=== PATIENT | female | born 1985 | race Caucasian/White ===

== ENCOUNTER 2023-07-28 03:30 | Emergency (ER) | payer MEDICAID, SELFPAY ==
[2023-07-28 03:32] VITALS: BP 140/100; PULSE 97; RESP 16; TEMP 36.6; O2SAT 99; BMI 21.7
[2023-07-28 04:00] VITALS: BP 125/88; PULSE 108; O2SAT 98
[2023-07-28 04:12] LABS: Microscopic, Urine URINE MICROSCOPIC (MICROSCOPIC)
[2023-07-28 04:22] LABS: Appearance,Urine CLEAR (Clear); Blood, Urine 2+ (Negative); Color,Urine ORANGE (Yellow); Glucose,Urine (UA) TRACE (Negative); Ketones,Urine Negative (Negative); Leukocyte Esterase,Urine 2+ (Negative); Nitrate,Urine POSITIVE (Negative); Protein,Urine 2+ (Negative); Urobilinogen,Urine >=8.0 EU/dl (0.2)
[2023-07-28 04:23] LABS: Bilirubin,Urine Negative (Negative)
[2023-07-28 04:30] VITALS: BP 112/87; PULSE 83; O2SAT 98
[2023-07-28 04:41] LABS: Bacteria,Urine 4+ /lpf
--- NOTE | 2023-07-28 04:51 | ED_ITS ---
Discharge Plan Disposition Patient Disposition: Home, Self-Care Condition: Good Prescriptions Prescriptions: New cefdinir 300 mg capsule 300 mg PO BID 7 Days Qty: 14 0RF Referrals Follow up/Referrals: Mecca Grover [Primary Care Provider] - See instructions Activity Restrictions/Add. Instructions Additional Instructions/Restrictions: You were evaluated in the ER. You are appropriate for discharge at this time. Take the newly prescribed antibiotics as directed, do not skip doses, do not stop taking them early. Increase your water intake and drink plenty of fluids. Continue taking Tylenol or ibuprofen if needed for pain, do not exceed the recommended doses on the bottles. Make an appointment with your primary care physician for reevaluation in 2 to 3 days. Return to the ER with any new, worsening, or otherwise concerning symptoms. Clinical Impressions Clinical Impression: Urinary tract infection Instructions Patient Instructions: DI for Urinary Tract Infection (UTI), DI for Urinary Tract Infection in Children Discharge ED Provider: Alannah Lance General Adult HPI General Chief complaint: Urogenital-Female Stated complaint: UTI, blood in urine, low fever Time Seen by Provider: 07/28/23 03:54 Mode of Arrival: Ambulatory Source of Information: Patient Limitations: No Limitations Description of Symptoms (Recalled from ER Triage Doc. by RN): pt c/o painful burning, decreased urination since yesterday morning. pt states has a history of UTI and took IBU, and AZO midol 2 hrs prior to arrival History of Present Illness HPI narrative: 38-year-old female presents to the ER concerned she has urinary tract infection. She states she is having pain with urination, states she is urinating very little since yesterday morning. Patient states she has history of E. coli urinary tract infection. She has taken nitrofurantoin for previously. She st ates she is having low back pain associated with her other symptoms. She states she has pain over her bladder. She has felt febrile but no measured temperature at home. She has taken Midol, ibuprofen, Azo prior to arrival. Related Data Previous Rx's Medication Instructions Recorded cefdinir 300 mg capsule 300 mg PO BID 7 days #14 caps 07/28/23 Allergies Allergy/AdvReac Type Severity Reaction Status Date / Time naloxone Allergy Verified 07/28/23 03:48 Penicillins Allergy Verified 07/28/23 03:48 propoxyphene Allergy Verified 07/28/23 03:48 bupropion AdvReac Verified 07/28/23 03:48 [facility] Disclaimer: The information contained in this section may have been updated after the patient was seen, as this information can be updated by other users. Social History Smoking Status: Current every day smoker alcohol intake: current current occupational status: other Travel in the last 8 weeks: None ROS Obtained: Yes All systems reviewed & no additional complaints except as doc umented Constitutional Constitutional: Denies chills, Denies fever(s), Denies headache(s) and Denies weakness Eyes Eyes: Denies change in vision ENT Ears, Nose, Mouth, and Throat: Denies dizziness, Denies headache(s), Denies nasal congestion and Denies sore throat Cardiovascular Cardiovascular: Denies chest pain, Denies dyspnea and Denies leg edema Respiratory Respiratory: Denies cough and Denies dyspnea Gastrointestinal Gastrointestingal: Denies constipation, diarrhea, nausea or vomiting Genitourinary Female Genitourinary: Reports dysuria and Reports urinary urgency Musculoskeletal Musculoskeletal: Denies arthralgias, Denies myalgias, Denies numbness and Denies tingling Integumentary/Breasts Skin/Breast: Denies change in pigmentation Neurologic Neurologic: Denies dizziness, Denies headache(s), Denies numbness, Denies tingling and Denies weakness Physical Exam General General appearance: alert and in no apparent distress Head Head exam: atraumatic and normocephalic Eye Eye exam: Present PERRL and EOMI ENT ENT exam: Present mucous membranes moist Neck Neck exam: Present normal inspection and full ROM Chest Chest inspection: Present symmetric chest wall rise Respiratory Respiratory exam: Present normal lung sounds bilaterally; Absent respiratory distress, wheezes or stridor Cardiovascular Cardiovascular exam: Present regular rate and normal rhythm Abdominal Exam Abdominal exam: Present soft and tenderness (Suprapubic); Absent distention, guarding or rebound Extremities Exam Extremities exam: Present full ROM Back Exam Back exam: Absent CVA tenderness (R) or CVA tenderness (L) Comment: Generalized low back discomfort, no ely CVA tenderness, no findings of injury Neurological Exam Neurological exam: Present alert and oriented X3; Absent motor sensory deficit Psychiatric Psychiatric exam: Present normal affect and normal mood Skin Skin exam: Present warm, dry and other (Thickened skin on right great toe, left and right second toe, nails well-appearing) Medical Decision Making Louie Inquiry Pt receiving controlled substance: No Vital Signs: 07/28/23 03:32 Temperature 97.8 F Temperature Source Oral Pulse Rate [Right] 97 H Respiratory Rate 16 Blood Pressure [Right Arm] 140/100 H Blood Pressure Mean [Right Arm] 113 02 Sat by Pulse Oximetry 99 Lab Data Lab Results 07/28/23 03:43: Urine Color [place], Urine Appearance Clear, Urine pH 5.0, Ur Specific [place] 1.020, Urine Protein 2+, Urine Glucose (UA) Trace, Urine Ketones Negative, Urine Blood 2+, Urine Nitrate Positive, Urine Bilirubin N egative, Urine Urobilinogen >=8.0, Ur Leukocyte Esterase 2+ A, Urine RBC 3-5, Urine WBC 3-5, Urine Bacteria 4+ Orders (Tests/Meds): ED MEDICATIONS Generic Name Dose Route Start Last Admin Trade Name Freq PRN Reason Stop Dose Admin Cefdinir 300 mg 07/28/23 04:51 Cefdinir 300mg Capsule PO 07/28/23 04:52 ONCE ONE ORDERS Category Date Time Status UA [Urinalysis and Microscopic] Stat Lab 07/28/23 03:43 Completed Urine Culture Stat Micro 07/28/23 03:43 Received Medical Decision Narrative: In summary, this 38year old female presents to the emergency department today with concerns of symptoms like her previous urinary tract infections. On initial evaluation patient is hemodynamically stable, afebrile, she has mild suprapubic tenderness to palpation without rebound or guarding, no CVA tenderness. Remainder of exam benign. Later in the encounter patient stated she had abnormal skin on her toes which I examined, they appear callused, potential fungal infection of the nails. Differential diagnosis includes but is not limited to urinary tract infection, pyelonephritis, I also considered urinary retention since patient stated she was only urinating small amounts. Based on these concerns, I ordered urinalysis, urine culture, bladder scan. Labs personally reviewed demonstrate 3-5 WBCs with presence of RBCs, bacteria, nitrates. Given patient's symptoms and consistency with previous UTIs, I am going to treat this. Culture is pending. Postvoid bladder scan less than 4 mL performed by bedside RN. No concern for urinary retention. Patient received cefdinir in the ER. She is being prescribed this medication for outpatient management as well. Patient was given instructions on symptomatic management, follow up instructions, and return precautions for the emergency department. Patient indicated understanding and was discharged in stable condition. Critical Care Critical Care Time Critical Care Time: No
[2023-07-28] MEDS: CEFDINIR 300MG CAPSULE 300 MG PO (05:02)
[2023-07-28 05:10] VITALS: BP 134/75; PULSE 81; RESP 16; TEMP 36.6; O2SAT 99
--- NOTE | 2023-08-02 09:54 | PC.NURSE ---
urine culture results discussed with , pt dc with cefdinir, ntd
== END 2023-07-28 05:26 | disposition home or self-care (01) ==
LOC: ER 05:23
PROVIDERS: Emergency Provider Emergency Medicine; PCP Family Medicine
DX: N39.0 Urinary tract infection, site not specified (principal); B96.29 Other Escherichia coli [E. coli] as the cause of diseases classified elsewhere; M54.59 Other low back pain; F17.210 Nicotine dependence, cigarettes, uncomplicated
CPT/HCPCS: 81001; 87086; 99283

== ENCOUNTER 2023-08-16 00:17 | Emergency (ER) | payer MEDICAID, SELFPAY ==
[2023-08-16 00:20] VITALS: BP 122/81; PULSE 107; RESP 18; TEMP 36.8; O2SAT 100; BMI 19.6
--- NOTE | 2023-08-16 01:47 | ED_ITS ---
Discharge Plan Disposition Patient Disposition: Home, Self-Care Condition: Good Prescriptions Prescriptions: No Action cefdinir 300 mg capsule 300 mg PO BID 7 Days Qty: 14 0RF Referrals Follow up/Referrals: Mecca Grover [Primary Care Provider] - See instructions Yesenia Jacobs APRN [Nurse Practitioner] - See instructions (pt concerned about possible parasites, has cup for sample, normal lab work. reports wt loss but has been stable on ER visits. Needs PCP) Activity Restrictions/Add. Instructions Additional Instructions/Restrictions: You were evaluated in the ER. You are appropriate for discharge at this time. Make an appointment with your primary care physician for reevaluation. You have also been referred to Yesenia Jacobs for this purpose. Take a stool sample to them for ova/parasite testing. You have been provided a cup for collection. Return to the ER with new, worsening, or otherwise concerning symptoms. Clinical Impressions Clinical Impression: Fatigue, Weakness Discharge ED Provider: Alannah Lance General Adult HPI General Chief complaint: Headache Stated complaint: body pain, fever, dehydrated, cramping Time Seen by Provider: 08/16/23 01:34 Mode of Arrival: Ambulatory Source of Information: Patient Limitations: No Limitations Description of Symptoms (Recalled from ER Triage Doc. by RN): Pt presents with concerns she has a parasite. Pt complains of itching skin, non healing sores, leg edema, headache, worms in her stool, weight loss, muscle cramps, and over all body aches for past 2 months. History of Present Illness HPI narrative: 38-year-old female presents to the ER with concerns that she has a parasite. Patient complains that she has had nonhealing sores on her legs, she had edema in her left leg at 1 point, and she is concerned she has worms in her stool. She brings a string-like item that she found next to her cats litter box. It has an area of green on it and appears as though it may be a piece of grass, but patient and family at bedside are extremely concerned it is warm. Patient reports 30 pounds of weight loss in the last 1.5 months however her weight today is stable from previous visit in July. She is also complaining of bodyaches and fatigue. Patient and family are extremely concerned about the possibility of parasitic burden because she complains of epigastric abdominal pain among her other symptoms. She shows me a picture on her iPad of a worm that she states is similar to something that came out of her recently. When asked to leave the stool sample, she reports that she is unable to because she only poops once every 2 weeks and had a bowel movement yesterday. Related Data Previous Rx's Medication Instructions Recorded cefdinir 300 mg capsule 300 mg PO BID 7 days #14 caps 07/28/23 Allergies Allergy/AdvReac Type Severity Reaction Status Date / Time naloxone Allergy Verified 07/28/23 03:48 Penicillins Allergy Verified 07/28/23 03:48 propoxyphene Allergy Verified 07/28/23 03:48 bupropion AdvReac Verified 07/28/23 03:48 [facility] Dis[facility]: The information contained in this section may have been updated after the patient was seen, as this information can be updated by other users. Social History (Updated 07/28/23 @ 05:04 by Alannah Lance MD) Smoking Status: Current every day smoker alcohol intake: current current occupational status: other Travel in the last 8 weeks: None ROS Obtained: Yes All systems reviewed & no additional complaints except as documented Constitutional Constitutional: Reports chills, Denies fever(s), Reports weakness and Reports weight loss (subjective) Eyes Eyes: Denies change in vision ENT Ears, Nose, Mouth, and Throat: Denies dizziness, Denies nasal congestion and Denies sore throat Cardiovascular Cardiovascular: Denies chest pain, Denies dyspnea and Reports leg edema (transient) Respiratory Respiratory: Denies cough and Denies dyspnea Gastrointestinal Gastrointestingal: Reports abdominal pain (epigastric), constipation (chronic, BM once every 2w), nausea and other (reports worm in stool); Denies diarrhea or vomiting Genitourinary Female Genitourinary: Denies dysuria and Denies urinary frequency Musculoskeletal Musculoskeletal: Denies arthralgias, Denies myalgias, Denies numbness and Denies tingling Integumentary/Breasts Skin/Breast: Denies change in pigmentation Neurologic Neurologic: Denies dizziness, Denies numbness, Denies tingling and Reports weakness Physical Exam General General appearance: alert and in no apparent distress Head Head exam: atraumatic and normocephalic Eye Eye exam: Present PERRL and EOMI ENT ENT exam: Present mucous membranes moist Neck Neck exam: Present normal inspection and full ROM Chest Chest inspection: Present symmetric chest wall rise Respiratory Respiratory exam: Present normal lung sounds bilaterally; Absent respiratory distress, wheezes or stridor Cardiovascular Cardiovascular exam: Present regular rate and normal rhythm Abdominal Exam Abdominal exam: Present soft and tenderness (epigastric); Absent distention, guarding or rebound Extremities Exam Extremities exam: Present full ROM, normal capillary refill and other (Dry, callus-like skin on the tips of the toes. Brisk capillary refill.); Absent tenderness Neurological Exam Neurological exam: Present alert and oriented X3; Absent motor sensory deficit Psychiatric Psychiatric exam: Present normal affect and normal mood Skin Skin exam: Present warm, dry and other (Few healing lesions on bilateral distal lower extremities, each are less than 1 cm in diameter, only one of them is currently open. None appear infected.) Medical Decision Making Medical Records Medical records reviewed: Yes I reviewed the patient's medical records. MR Comment: Most recent records are from end of July when patient was seen in the ER by me and had findings consistent with urinary tract infection. Louie Inquiry Pt receiving controlled substance: No Vital Signs: 08/16/23 00:20 Temperature 98.2 F Temperature Source Oral Pulse Rate [Left] 107 H Respiratory Rate 18 Blood Pressure [Right Arm] 122/81 Blood Pressure Mean [Right Arm] 94 Blood Pressure Source [Right Arm] Automatic Cuff Blood Pressure Position [Right Arm] Sitting 02 Sat by Pulse Oximetry 100 Oxygen Delivery Method Room Air Lab Data Lab Results 08/16/23 01:55: Urine Color Yellow, Urine Appearance Slightly cloudy, Urine pH 7.0, Ur Specific [place] 1.010, Urine Protein Negative, Urine Glucose (UA) Negative, Urine Ketones Negative, Urine Blood 1+, Urine Nitrate Negative, Urine Bilirubin Negative, Urine Urobilinogen 1.0, Ur Leukocyte Esterase Negative, Urine RBC 5-10, Urine WBC Occasional, Ur Squamous Epith Cells 3-5, Urine Bacteria Trace 08/16/23 01:58: WBC 9.2, RBC 4.26, Hgb 14.1, Hct 43.6, MCV 102.2 H, MCH 33.1 H, MCHC 32.4, RDW 13.2, Plt Count 259, MPV 7.9, Neut % (Auto) 50.2, Lymph % (Auto) 39.7, [place] % (Auto) 5.4, Eos % (Auto) 3.6, Baso % (Auto) 1.1, Neut # (Auto) 4.6, Lymph # (Auto) 3.7, [place] # (Auto) 0.5, Eos # (Auto) 0.3, Baso # (Auto) 0.1, PT 10.3, INR 0.95, Sodium 138, Potassium 3.6, Chloride 101, Carbon Dioxide 31 H, Anion Gap 9.6, BUN 18 H, Creatinine 0.70, Estimated Creat Clear 87, Estimated GFR 94, Est GFR ( Amer) 114, Glucose 93, Calcium 9.3, Total Bilirubin 0.4, AST 29, ALT 22, Alkaline Phosphatase 69, Total Protein 7.2, Albumin 4.4, Globulin 2.8, Albumin/Globulin Ratio 1.6, Lipase 85 08/16/23 01:58 08/16/23 01:58 Orders (Tests/Meds): ED MEDICATIONS Discontinued Medications Generic Name Dose Route Start Last Admin Trade Name Freq PRN Reason Stop Dose Admin Belladonna Alkaloids 60 ml 08/16/23 01:58 08/16/23 02:17 Belladonna Alkaloids 60 Ml Ml PO 08/16/23 01:59 Not Given ONCE ONE Lactated Ringer's 1,000 mls @ 999 mls/hr 08/16/23 01:47 08/16/23 01:55 Lactated Ringer's 1000 Ml Bag IV 08/16/23 02:47 999 mls/hr .[id number] ONE Administration ORDERS Category Date Time Status CBC w/Auto Diff [Complete Blood Count Auto Diff] Stat Lab 08/16/23 01:58 Completed CMP [Comprehensive Metabolic Panel] Stat Lab 08/16/23 01:58 Completed Lipase Stat Lab 08/16/23 01:58 Completed PT INR [Prothrombin Time INR] Stat Lab 08/16/23 01:58 Completed Urinalysis and Microscopic Stat Lab 08/16/23 01:55 Completed Medical Decision Narrative: In summary, this 38year old female presents to the emergency department today with concerns of possible parasites. On initial evaluation patient is hemodynamically stable, tachycardia that was present on arrival has resolved on exam, she is afebrile, resting comfortably. She has few healing lesions on her bilateral distal lower extremities, no signs of infection of the wounds, callus type thickening of the skin of the toes, mild tenderness to palpation of the epigastric area of the abdomen without rebound or guarding, nonacute abdomen, cardiopulmonary exam reassuring, brisk capillary refill, GCS 15, no focal neurologic deficits. Differential diagnosis includes but is not limited to anemia, electrolyte abnormality, intestinal parasite, pancreatitis, urinary tract infection, malnutrition. Patient was amenable to basic labs, however I had recommended CT scan for further evaluation of abdominal pain, and patient refused this. She states she is tired and would like to go home. She states she does not want to wait for any imaging but is open to having labs completed. I encouraged the patient to allow CT abdomen pelvis which would allow me to better evaluate her internal organs including liver, gallbladder, pancreas, stomach, all of which could be contributing to her epigastric pain, however she refuses stating she is too tired. I requested stool sample to test for ova and parasite, however patient reports being unable to provide one. Patient received IV fluids. Labs personally reviewed demonstrate no leukocytosis, no anemia, trace prerenal azotemia, patient has already received IV fluids. No findings of kidney or liver dysfunction, eosinophils normal which is reassuring against parasitic infection though it is not ruled out. UA negative for findings of UTI. On reassessment patient continues to be stable. She still refuses CT scan. She is appropriate for discharge at this time. She was provided a cup for stool sample to be collected and was encouraged to collect and take it to her primary care physician. I also gave her referral to Yesenia Jacobs for primary care as patient was not sure she would be able to get into her normal primary. Patient was given instructions on symptomatic management, follow up instructions, and return precautions for the emergency department. Patient indicated understanding and was discharged in stable condition. Critical Care Critical Care Time Critical Care Time: No
[2023-08-16] MEDS: LACTATED RINGERS 1000ML 1,000 ML 999 ML IV (01:55)
[2023-08-16 01:59] LABS: Microscopic, Urine URINE MICROSCOPIC (MICROSCOPIC)
[2023-08-16 02:00] LABS: Bilirubin,Urine Negative (Negative); Blood, Urine 1+ (Negative); Color,Urine YELLOW (Yellow); Glucose,Urine (UA) Negative (Negative); Ketones,Urine Negative (Negative); Leukocyte Esterase,Urine Negative (Negative); Nitrate,Urine Negative (Negative); Protein,Urine Negative (Negative)
[2023-08-16 02:01] LABS: Appearance,Urine Slightly Cloudy (Clear)
[2023-08-16 02:06] LABS: Basophils # 0.1 K/mm3 (0-0.2); Basophils % 1.1 % (0.1-2.0); Eosinophils # 0.3 K/mm3 (0.0-0.4); Eosinophils % 3.6 % (0.1-12.0); Hematocrit 43.6 % (37.0-47.0); Hemoglobin 14.1 g/dL (12.2-16.2); Lymphocytes # 3.7 K/mm3 (0.7-4.5); Lymphocytes % 39.7 % (10-50); Mean Corpuscular HGB Conc 32.4 g/dL (31.8-35.4); Mean Corpuscular Hemoglobin 33.1 pg (27.0-31.2); Mean Corpuscular Volume 102.2 fl (81-99); Mean Platelet Volume 7.9 fl (7.4-10.4); Monocytes # 0.5 K/mm3 (0.1-1.0); Monocytes % 5.4 % (1.7-9.3); Neutrophils # 4.6 K/mm3 (1.8-7.8); Neutrophils % 50.2 % (37.0-80.0); Platelet Count 259 K/mm3 (142-424); Red Blood Count 4.26 M/mm3 (4.20-5.40); Red Cell Distribution Width 13.2 % (11.5-17.5); White Blood Count 9.2 K/mm3 (4.8-10.8)
[2023-08-16 02:10] LABS: Chloride 101 mmol/L (98-107); Potassium 3.6 mmoL/L (3.5-5.1); Sodium 138 mmol/L (136-145)
[2023-08-16 02:12] LABS: Alanine Aminotransferase 22 U/L (12-78); Aspartate Amino Transferase 29 U/L (14-36); Blood Urea Nitrogen 18 mg/dl (7-17); Creatinine Clearance Estimated 87 mL/min (50-200); Estimated Glomerular Filt Rate 94 ml/min (>60); GFR (African American) 114 ML/MIN (>60)
[2023-08-16 02:12] LABS: Bacteria,Urine Trace /lpf; WBC,Urine Occasional #/hpf (0-3)
[2023-08-16 02:13] LABS: Albumin Level 4.4 g/dl (3.5-5.0); Albumin/Globulin Ratio 1.6 (1.1-1.8); Alkaline Phosphatase 69 U/L (38-126); Anion Gap 9.6 mEq/L (5-15); Bilirubin,Total 0.4 mg/dl (0.2-1.3); Calcium 9.3 mg/dl (8.4-10.2); Carbon Dioxide 31 mmol/L (22.0-30.0); Globulin 2.8 g/dL (1.3-3.2); Glucose 93 mg/dl (74-100); Lipase 85 U/L (23-300); Total Protein,Serum 7.2 g/dl (6.3-8.2)
[2023-08-16 02:14] LABS: INR 0.95 (0.9-1.1); Prothrombin Time 10.3 seconds (10.1-12.5)
[2023-08-16 03:01] VITALS: BP 109/77; PULSE 77; RESP 16; TEMP 36.8; O2SAT 100
== END 2023-08-16 03:03 | disposition home or self-care (01) ==
PROVIDERS: Emergency Provider Emergency Medicine; PCP Family Medicine
DX: R53.83 Other fatigue (principal); R53.1 Weakness; M79.18 Myalgia, other site; F17.210 Nicotine dependence, cigarettes, uncomplicated; R10.816 Epigastric abdominal tenderness
CPT/HCPCS: 80053; 81001; 83690; 85025; 85610; 96360; 99284

== ENCOUNTER 2023-11-13 05:04 | Emergency (ER) | payer MEDICAID, SELFPAY ==
[2023-11-13 05:05] VITALS: BP 140/92; PULSE 94; RESP 17; TEMP 36.7; O2SAT 100; BMI 22.4
--- NOTE | 2023-11-13 05:36 | ED_ITS ---
Discharge Plan Disposition Patient Disposition: Home, Self-Care Condition: Good Referrals Follow up/Referrals: Mecca Grover [Primary Care Provider] - See instructions Activity Restrictions/Add. Instructions Additional Instructions/Restrictions: You were evaluated in the ER. You are appropriate for discharge at this time. Keep bacitracin on the wound, use this twice daily. Keep a Band-Aid over it. The stitches will fall out on their own. You can shower/bathe like normal. Once the wound is fully healed, apply sunscreen and vitamin E oil to reduce scarring. Take Tylenol if needed for headache, do not exceed the recommended casas on the bottle. Follow-up with your primary care physician in a few days for reevaluation. Return to the ER with new, worsening, or otherwise concerning symptoms. Clinical Impressions Clinical Impression: Facial laceration, Concussion without loss of consciousness Instructions Patient Instructions: DI for Concussion Print Language Print Language: [place] Discharge ED Provider: Alannah Lance Adult HPI General Chief complaint: Fall Stated complaint: fall, laceration forehead Time Seen by Provider: 11/13/23 05:31 Mode of Arrival: Ambulatory Source of Information: Patient and Significant Other Limitations: No Limitations Description of Symptoms (Recalled from ER Triage Doc. by RN): Patient reports that she slipped on clothing in the floor in the bathroom and hit her head either on the floor or wall causing a laceration above her right eyebrow. Patient states she did not lose conciousness. Patient reports headace at this time and light sensitivity. Bleeding controlled. History of Present Illness HPI narrative: 38-year-old female presents to the ER after patient tripped and fell in the bathroom. She does not know if she struck her head on the floor or on the wall but does not believe she lost consciousness. She has a laceration above the right eyebrow. Patient complains of headache and light sensitivity, no nausea or vomiting, no seizure-like activity, patient struck her right knee but ambulated into the ER and has no swelling. She has no history of bleeding disorders, does not take any blood thinners, no neck pain. She does not recall her last Tdap booster. Related Data Allergies Allergy/AdvReac Type Severity Reaction Status Date / Time naloxone Allergy Verified 11/13/23 05:17 Penicillins Allergy Verified 11/13/23 05:17 propoxyphene Allergy Verified 11/13/23 05:17 bupropion AdvReac Verified 11/13/23 05:17 [facility] Disclaimer: The information contained in this section may have been updated after the patient was seen, as this information can be updated by other users. Medical History (Updated 11/13/23 @ 06:39 by Alannah Lance MD) No significant medical problems Social History (Updated 07/28/23 @ 05:04 by Alannah Lance MD) Smoking Status: Current every day smoker alcohol intake: current current occupational status: other Travel in the last 8 weeks: None ROS Obtained: Yes All systems reviewed & no additional complaints except as documented Constitutional Constitutional: Reports headache(s) ENT Ears, Nose, Mouth, and Throat: Reports headache(s) Musculoskeletal Musculoskeletal: Reports arthralgias (Right knee pain), Denies joint stiffness and Denies joint swelling Integumentary/Breasts Skin/Breast: Reports wounds Neurologic Neurologic: Reports headache(s) Physical Exam General General appearance: alert and in no apparent distress Head Head exam: normocephalic and other (2 cm laceration at the superior, lateral aspect of the right eyebrow, hemostatic at this time, no underlying bony deformity, no hematoma) Eye Eye exam: Present PERRL, EOMI (Painless extraocular movements) and other (No hyphema); Absent conjunctival redness, discharge or periorbital swelling ENT ENT exam: Present normal oropharynx (No findings of oral injury) and mucous membranes moist Neck Neck exam: Present normal inspection and full ROM; Absent tenderness Chest Chest inspection: Present symmetric chest wall rise Respiratory Respiratory exam: Absent respiratory distress or stridor Cardiovascular Cardiovascular exam: Present regular rate and normal rhythm Abdominal Exam Abdominal exam: Present soft; Absent distention or tenderness Extremities Exam Extremities exam: Present full ROM and tenderness (Mild tenderness to palpation over the right patella, however there is no deformity, swelling, extensor mechanism intact, no ligamentous laxity) Neurological Exam Neurological exam: Present alert, oriented X3 and other (GCS 15); Absent motor sensory deficit Psychiatric Psychiatric exam: Present normal affect and normal mood Skin Skin exam: Present warm and dry Medical Decision Making Medical Records Medical records reviewed: Yes I reviewed the patient's medical records. Louie Inquiry Pt receiving controlled substance: No Vital Signs: 11/13/23 05:05 Temperature 98.1 F Temperature Source Oral Pulse Rate [Left Radial] 94 H Respiratory Rate 17 Blood Pressure [Right Arm] 140/92 H Blood Pressure Mean [Right Arm] 108 Blood Pressure Source [Right Arm] Automatic Cuff Blood Pressure Position [Right Arm] Sitting 02 Sat by Pulse Oximetry 100 Oxygen Delivery Method Room Air Orders (Tests/Meds): ED MEDICATIONS Generic Name Dose Route Start Last Admin Trade Name Freq PRN Reason Stop Dose Admin Bacitracin 1 gm 11/13/23 06:36 Bacitracin Zinc Oint 30gm Tube TP 11/13/23 06:37 ONCE ONE Discontinued Medications Generic Name Dose Route Start Last Admin Trade Name Freq PRN Reason Stop Dose Admin Acetaminophen 1,000 mg 11/13/23 05:44 11/13/23 06:13 Acetaminophen 500mg Tab PO 11/13/23 05:45 1,000 mg ONCE ONE Administration Cocaine HCl 1 ml 11/13/23 05:37 11/13/23 05:43 Cocaine 4% Topical Soln 4ml Bottle TP 11/13/23 05:38 1 ml ONCE ONE Administration Epinephrine HCl 1 mg 11/13/23 05:37 11/13/23 05:43 Epinephrine 1 Mg/Ml Ampul TP 11/13/23 05:38 1 mg ONCE ONE Administration Lidocaine HCl 1 ml 11/13/23 05:37 11/13/23 05:43 Lidocaine 2% Urojet 10ml TP 11/13/23 05:38 1 ml ONCE ONE Administration Lidocaine HCl 5 ml 11/13/23 06:25 11/13/23 06:35 Lidocaine 1% 10ml Mdv SQ 11/13/23 06:26 5 ml ONCE ONE Administration Tetanus/Reduced Diphtheria/Acell Pertussis 0.5 ml 11/13/23 05:38 11/13/23 05:52 Tet/Diphth/Pert-Adult 0.5ml Syringe IM 11/13/23 05:39 0.5 ml .ONCE ONE Administration Medical Decision Narrative: In summary, this 38-year-old female presents to the emergency department today with right eyebrow laceration after fall. On initial evaluation patient is hemodynamically stable, afebrile, GCS 15, no neurologic deficits, patient ambulated into the ER, patient has laceration above the right eyebrow that is hemostatic, no hematoma or deformity of the skull, no neck pain, patient has mild tenderness to the right knee without deformity, swelling, bruising, or ligamentous laxity. Differential diagnose includes is not limited to laceration, foreign body, I considered the possibility of skull fracture, intracranial bleed, however I have extremely low suspicion for these given the mechanism of injury, [place] CT head and CT C-spine scoring tools were used indicating no need for CT imaging at this time. Clinically I agree with this. Patient is receiving Tdap booster. Lidocaine/epinephrine/cocaine applied to the wound. Wound was repaired. See procedure note for details. Patient received tylenol for headache. Bacitracin was applied to patient's wound. Patient and significant other at bedside were given instructions on wound care, symptomatic management, follow up instructions, and return precautions for the emergency department. They indicated understanding and patient was discharged in stable condition. Procedures Risk/Benefits of Procedure(s) Were Explained: Yes (Verbal consent provided.) Laceration Laceration 1: Site: face Side (If applicable): right (Superior to right eyebrow) Size (cm): 2 Description: linear Depth: simple, single layer Local Anesthetic: lidocaine 1% and other anesthetic (Topical lidocaine/epinephrine/cocaine) Amount of anesthesia used (mL): 2 Pre-repair: wound explored and irrigated extensively Skin layer closed with: other (Fast gut) Size (cm): 5-0 Number of sutures: 4 Technique: simple, interrupted Critical Care Critical Care Time Critical Care Time: No
[2023-11-13] MEDS: LIDOCAINE 2% UROJET 10ML TP (05:43)
[2023-11-13] MEDS: EPINEPHrine 1 MG/ML AMPUL TP (05:43)
[2023-11-13] MEDS: COCAINE 4% TOPICAL SOLN 4ML BOTTLE 1 ML TP (05:43)
[2023-11-13] MEDS: TET/DIPHTH/PERT-ADULT 0.5ML SYRINGE 0.5 ML IM (05:52)
[2023-11-13] MEDS: ACETAMINOPHEN 500MG TAB 1000 MG PO (06:13)
[2023-11-13] MEDS: LIDOCAINE 1% 10ML MDV 5 ML SQ (06:35)
[2023-11-13] MEDS: BACITRACIN ZINC OINT 30GM TUBE TP (06:41)
[2023-11-13 06:53] VITALS: BP 110/60; PULSE 70; RESP 16; TEMP 36.8; O2SAT 99
== END 2023-11-13 06:54 | disposition home or self-care (01) ==
PROVIDERS: Emergency Provider Emergency Medicine; PCP Family Medicine
DX: S01.81XA Laceration without foreign body of other part of head, initial encounter (principal); R51.9 Headache, unspecified; W01.10XA Fall on same level from slipping, tripping and stumbling with subsequent striking against unspecified object, initial encounter; Z23 Encounter for immunization
CPT/HCPCS: 12011; 90471; 90715; 99283